=== PATIENT | female | born 1985 | race Two or more races ===

== ENCOUNTER 2020-04-08 06:27 | Day surgery (SDC) | payer OTHER ==
[2020-04-03 12:04] VITALS: BMI 32.5
[2020-04-08] MEDS ORDERED: PROPOFOL 20 ML ONE ×5 (07:36→09:02)
[2020-04-08] MEDS ORDERED: LIDOCAINE HCL/PF 2% SDV 5ML VIAL ONE (07:36)
[2020-04-08 09:25] VITALS: TEMP 98.2
[2020-04-08 10:15] VITALS: BP 122/64; PULSE 76
== END 2020-04-08 10:16 | disposition home or self-care (01) ==
LOC: FASU-ENDO 06:27
PROVIDERS: ATTEND Internal Medicine Gastroenterology
PROC: 0DB78ZX Excision of Stomach, Pylorus, Via Natural or Artificial Opening Endoscopic, Diagnostic (ICD-10-PCS; 2020-04-08)
PROC: 0DB38ZX Excision of Lower Esophagus, Via Natural or Artificial Opening Endoscopic, Diagnostic (ICD-10-PCS; 2020-04-08)
PROC: 0DB98ZX Excision of Duodenum, Via Natural or Artificial Opening Endoscopic, Diagnostic (ICD-10-PCS; principal; 2020-04-08 08:49)
DX: K29.50 Unspecified chronic gastritis without bleeding (principal)
CPT/HCPCS: 84703; 88305-TC